=== PATIENT | female | born 1935 | race Caucasian/White ===

== ENCOUNTER 2016-04-29 17:43 | Inpatient (IN) | payer MEDICARE, OTHER ==
[~2016-04-29] VITALS: Ht 167.6 cm; Wt 61.2 kg
[2016-04-29 18:32] LABS: BASOPHILS % (AUTO) 0.4 % (0.0-2.0); DIFF TOTAL % 100 %; EOSINOPHILS # (AUTO) 0.1 /CMM (0.0-0.7); HEMATOCRIT 46 % (33-45); HEMOGLOBIN 14.9 g/dL (11.5-14.8); LYMPHOCYTES % (AUTO) 21.9 % (20.0-44.0); MEAN CORPUSCULAR HEMOGLOBIN 30 PG (26.0-33.0); MEAN CORPUSCULAR HGB CONC 33 g/dl (31.0-36.0); MEAN CORPUSCULAR VOLUME 91 fL (82-100); MONOCYTES # (AUTO) 0.5 /CMM (0.1-1.30); MONOCYTES % (AUTO) 5.2 % (2.0-12.0); NEUTROPHILS # (AUTO) 6.5 /CMM (1.8-8.9); NEUTROPHILS % (AUTO) 71.5 % (43.0-81.0); PLATELET COUNT (AUTO) 232 /CMM (150-450); RED BLOOD CELL COUNT(AUTO) 5.01 MIL/uL (4.0-5.2); WHITE BLOOD COUNT (AUTO) 9.1 K/uL (4.3-11.0)
[2016-04-29 18:43] LABS: KETONES,URINE Negative (NEGATIVE); LEUKOCYTE ESTERASE ,URINE Trace (NEGATIVE); PH,URINE 5.5 (5.0-8.0)
[2016-04-29 18:48] LABS: ADD UA MICROSCOPIC YES
[2016-04-29 18:52] LABS: ADD URINE CULTURE NO
[2016-04-29 18:58] LABS: CANNABINOID, URINE NEGATIVE (NEGATIVE); PHENCYCLIDINE SCREEN,URINE NEGATIVE (NEGATIVE)
[2016-04-29 18:59] LABS: ALANINE AMINOTRANSFERASE 20 U/L (12-78); ALBUMIN 4.1 g/dL (3.4-5.0); ANION GAP 14 (5-14); ASPARTATE AMINOTRANSFERASE 22 U/L (15-37); BILIRUBIN,DIRECT 0.2 mg/dL (0.0-0.2); BILIRUBIN,TOTAL 0.7 mg/dL (0.2-1.0); CALCIUM, SERUM 9.6 mg/dL (8.5-10.1); CARBON DIOXIDE 27 mmol/L (21-32); CHLORIDE 103 mmol/L (98-107); GLUCOSE 99 mg/dL (74-106); INDIRECT BILIRUBIN 0.5 mg/dL (0.0-1.1); POTASSIUM 4.5 mmol/L (3.5-5.1); SODIUM SERUM 139 mmol/L (136-145); TOTAL PROTEIN, SERUM 8.2 g/dL (6.4-8.2); UREA NITROGEN, BLOOD 22 mg/dL (7-18)
[2016-04-29 19:05] LABS: THYROID STIMULATING HORMONE 0.957 uIU/mL (0.358-3.74)
[2016-04-29] MEDS ORDERED: SOTA80TA PO (19:28)
[2016-04-29] MEDS ORDERED: MEMA10TA PO (19:28)
[2016-04-29] MEDS ORDERED: PANT20TA3 PO (19:28)
[2016-04-29] MEDS ORDERED: LEVO100T PO (19:28)
[2016-04-29 20:00] VITALS: BP 137/75
[2016-04-29] MEDS ORDERED: ACETAMINOPHEN 325 MG TABLET PO PRN ×2 (20:00→21:00)
[2016-04-29] MEDS ORDERED: MAGNESIUM HYDROXIDE 30 ML UDC PO PRN ×2 (20:00→21:00)
[2016-04-29] MEDS ORDERED: MAG HYDROX/AL HYDROX/SIMETH 30 ML UDC PO PRN ×2 (20:00→21:00)
[2016-04-29] MEDS ORDERED: ZOLPIDEM TARTRATE 5 MG TABLET PO PRN (20:00)
[2016-04-29] MEDS ORDERED: LORAZEPAM 0.5 MG TABLET PO PRN (21:00)
[2016-04-30] MEDS ORDERED: TEMAZEPAM 7.5 MG CAPSULE ONE (00:09)
[2016-04-30] MEDS: TEMAZEPAM 7.5 MG CAPSULE PO PRN ×2 (00:13→21:40)
[2016-04-30 01:36] VITALS: BP 137/75
[2016-04-30 07:26] LABS: BASOPHILS % (AUTO) 0.6 % (0.0-2.0); DIFF TOTAL % 100 %; EOSINOPHILS # (AUTO) 0.1 /CMM (0.0-0.7); EOSINOPHILS % (AUTO) 1.6 % (0.0-6.0); HEMATOCRIT 45 % (33-45); HEMOGLOBIN 14.6 g/dL (11.5-14.8); LYMPHOCYTES % (AUTO) 33.5 % (20.0-44.0); MEAN CORPUSCULAR HEMOGLOBIN 30 PG (26.0-33.0); MEAN CORPUSCULAR HGB CONC 33 g/dl (31.0-36.0); MEAN CORPUSCULAR VOLUME 92 fL (82-100); MONOCYTES # (AUTO) 0.6 /CMM (0.1-1.30); MONOCYTES % (AUTO) 6.9 % (2.0-12.0); NEUTROPHILS # (AUTO) 5.1 /CMM (1.8-8.9); NEUTROPHILS % (AUTO) 57.4 % (43.0-81.0); PLATELET COUNT (AUTO) 204 /CMM (150-450); RED BLOOD CELL COUNT(AUTO) 4.89 MIL/uL (4.0-5.2); WHITE BLOOD COUNT (AUTO) 8.8 K/uL (4.3-11.0)
[2016-04-30] MEDS ORDERED: PANTOPRAZOLE 40 MG TABLET.DR PO SCH (07:30)
[2016-04-30 07:50] LABS: BILIRUBIN,TOTAL 0.7 mg/dL (0.2-1.0); CALCIUM, SERUM 9.6 mg/dL (8.5-10.1); CREATININE 1.1 mg/dL (0.6-1.3); PHOSPHORUS 3.6 mg/dL (2.5-4.9); POTASSIUM 4.5 mmol/L (3.5-5.1); TOTAL PROTEIN, SERUM 8.2 g/dL (6.4-8.2)
[2016-04-30 08:00] VITALS: BP 123/72
[2016-04-30] MEDS: LEVOTHYROXINE SODIUM 100 MCG TABLET PO SCH (08:50)
[2016-04-30] MEDS: PANTOPRAZOLE 40 MG TABLET.DR PO SCH (08:50)
[2016-04-30] MEDS: MEMANTINE HCL 5 MG TABLET PO SCH ×2 (08:50→16:49)
[2016-04-30] MEDS: SOTALOL HCL 80 MG TABLET PO SCH ×2 (08:51→17:00)
[2016-04-30 16:02] VITALS: BP 96/57
[2016-04-30] MEDS: SERTRALINE HCL 25 MG TABLET PO SCH (16:50)
[2016-04-30 17:01] VITALS: BP 133/63
[2016-04-30 19:47] VITALS: BP 136/74
[2016-04-30] MEDS ORDERED: QUETIAPINE FUMARATE 25 MG TABLET PO SCH (22:00)
[2016-05-01 08:00] VITALS: BP 116/72
[2016-05-01] MEDS: PANTOPRAZOLE 40 MG TABLET.DR PO SCH (08:46)
[2016-05-01] MEDS: SERTRALINE HCL 25 MG TABLET PO SCH (08:47)
[2016-05-01] MEDS: MEMANTINE HCL 5 MG TABLET PO SCH ×2 (08:47→16:15)
[2016-05-01] MEDS: LEVOTHYROXINE SODIUM 100 MCG TABLET PO SCH (08:47)
[2016-05-01] MEDS: SOTALOL HCL 80 MG TABLET PO SCH ×2 (09:23→16:15)
[2016-05-01 15:55] VITALS: BP 100/55
[2016-05-01 15:56] VITALS: BP 147/59
[2016-05-01 19:48] VITALS: BP 119/60
[2016-05-01] MEDS: QUETIAPINE FUMARATE 25 MG TABLET PO SCH (21:13)
[2016-05-02 08:00] VITALS: BP 125/73
[2016-05-02] MEDS: SERTRALINE HCL 25 MG TABLET PO SCH (08:21)
[2016-05-02] MEDS: MEMANTINE HCL 5 MG TABLET PO SCH ×2 (08:21→16:43)
[2016-05-02] MEDS: PANTOPRAZOLE 40 MG TABLET.DR PO SCH (08:21)
[2016-05-02] MEDS: LEVOTHYROXINE SODIUM 100 MCG TABLET PO SCH (08:21)
[2016-05-02] MEDS: SOTALOL HCL 80 MG TABLET PO SCH ×2 (08:22→16:43)
[2016-05-02 16:18] VITALS: BP 125/70
[2016-05-02 20:08] VITALS: BP 131/74
[2016-05-02] MEDS: QUETIAPINE FUMARATE 25 MG TABLET PO SCH (21:28)
[2016-05-03 08:00] VITALS: BP 130/83
[2016-05-03] MEDS: SERTRALINE HCL 25 MG TABLET PO SCH (08:38)
[2016-05-03] MEDS: PANTOPRAZOLE 40 MG TABLET.DR PO SCH (08:38)
[2016-05-03] MEDS: MEMANTINE HCL 5 MG TABLET PO SCH ×2 (08:38→16:10)
[2016-05-03] MEDS: SOTALOL HCL 80 MG TABLET PO SCH ×2 (08:39→17:06)
[2016-05-03] MEDS: LEVOTHYROXINE SODIUM 100 MCG TABLET PO SCH (08:39)
[2016-05-03 16:00] VITALS: BP 127/79
[2016-05-03 19:54] VITALS: BP 102/54
[2016-05-03] MEDS: QUETIAPINE FUMARATE 25 MG TABLET PO SCH (21:00)
[2016-05-04] MEDS: PANTOPRAZOLE 40 MG TABLET.DR PO SCH (07:30)
[2016-05-04] MEDS: LEVOTHYROXINE SODIUM 100 MCG TABLET PO SCH (07:30)
[2016-05-04 07:31] LABS: BASOPHILS % (AUTO) 0.5 % (0.0-2.0); DIFF TOTAL % 100 %; EOSINOPHILS # (AUTO) 0.1 /CMM (0.0-0.7); EOSINOPHILS % (AUTO) 1.5 % (0.0-6.0); HEMATOCRIT 44 % (33-45); HEMOGLOBIN 14.6 g/dL (11.5-14.8); LYMPHOCYTES # (AUTO) 1.9 /CMM (0.8-4.8); LYMPHOCYTES % (AUTO) 27.1 % (20.0-44.0); MEAN CORPUSCULAR HEMOGLOBIN 30 PG (26.0-33.0); MEAN CORPUSCULAR HGB CONC 33 g/dl (31.0-36.0); MEAN CORPUSCULAR VOLUME 91 fL (82-100); MONOCYTES # (AUTO) 0.6 /CMM (0.1-1.30); MONOCYTES % (AUTO) 8.1 % (2.0-12.0); NEUTROPHILS # (AUTO) 4.5 /CMM (1.8-8.9); NEUTROPHILS % (AUTO) 62.8 % (43.0-81.0); PLATELET COUNT (AUTO) 225 /CMM (150-450); RED BLOOD CELL COUNT(AUTO) 4.86 MIL/uL (4.0-5.2); WHITE BLOOD COUNT (AUTO) 7.1 K/uL (4.3-11.0)
[2016-05-04 07:55] LABS: CALCIUM, SERUM 10.1 mg/dL (8.5-10.1); CREATININE 1.1 mg/dL (0.6-1.3); PHOSPHORUS 3.8 mg/dL (2.5-4.9); POTASSIUM 4.1 mmol/L (3.5-5.1)
[2016-05-04 08:00] VITALS: BP 147/72
[2016-05-04] MEDS: MEMANTINE HCL 5 MG TABLET PO SCH ×2 (08:29→17:00)
[2016-05-04] MEDS: SOTALOL HCL 80 MG TABLET PO SCH ×2 (08:31→17:00)
[2016-05-04] MEDS: SERTRALINE HCL 25 MG TABLET PO SCH (08:32)
[2016-05-04 12:16] LABS: INR 0.97 (0.87-1.13); PROTHROMBIN TIME 10.5 SECS (9.5-12.7)
[2016-05-04 16:00] VITALS: BP 111/57
[2016-05-04 20:06] VITALS: BP 122/72
[2016-05-04] MEDS: QUETIAPINE FUMARATE 25 MG TABLET PO SCH (21:23)
[2016-05-05 08:08] VITALS: BP 101/58
[2016-05-05] MEDS: SOTALOL HCL 80 MG TABLET PO SCH ×2 (09:00→17:00)
[2016-05-05] MEDS: SERTRALINE HCL 25 MG TABLET PO SCH (09:53)
[2016-05-05] MEDS: LEVOTHYROXINE SODIUM 100 MCG TABLET PO SCH (10:50)
[2016-05-05] MEDS: PANTOPRAZOLE 40 MG TABLET.DR PO SCH (10:50)
[2016-05-05 16:31] VITALS: BP 104/56
[2016-05-05 20:02] VITALS: BP 109/65
[2016-05-05] MEDS: QUETIAPINE FUMARATE 25 MG TABLET PO SCH (21:10)
[2016-05-05] MEDS: TEMAZEPAM 7.5 MG CAPSULE PO PRN (22:37)
[2016-05-06] MEDS: PANTOPRAZOLE 40 MG TABLET.DR PO SCH (07:30)
[2016-05-06 08:00] VITALS: BP 170/79
[2016-05-06] MEDS: SERTRALINE HCL 25 MG TABLET PO SCH (10:29)
[2016-05-06] MEDS: LEVOTHYROXINE SODIUM 100 MCG TABLET PO SCH (10:30)
[2016-05-06] MEDS: SOTALOL HCL 80 MG TABLET PO SCH ×2 (10:30→17:31)
[2016-05-06 16:00] VITALS: BP 154/59
[2016-05-06 20:00] VITALS: BP 119/61
[2016-05-06] MEDS: QUETIAPINE FUMARATE 25 MG TABLET PO SCH (21:30)
[2016-05-06] MEDS: TEMAZEPAM 7.5 MG CAPSULE PO PRN (21:31)
[2016-05-07 08:16] VITALS: BP 145/73
[2016-05-07] MEDS: LEVOTHYROXINE SODIUM 100 MCG TABLET PO SCH (09:53)
[2016-05-07] MEDS: SOTALOL HCL 80 MG TABLET PO SCH ×2 (09:54→16:14)
[2016-05-07] MEDS: PANTOPRAZOLE 40 MG TABLET.DR PO SCH (09:55)
[2016-05-07] MEDS: SERTRALINE HCL 25 MG TABLET PO SCH (09:55)
[2016-05-07 16:00] VITALS: BP 101/56
[2016-05-07 20:00] VITALS: BP 109/65
[2016-05-07] MEDS: QUETIAPINE FUMARATE 25 MG TABLET PO SCH (21:06)
[2016-05-08] MEDS: LEVOTHYROXINE SODIUM 100 MCG TABLET PO SCH (07:30)
[2016-05-08] MEDS: PANTOPRAZOLE 40 MG TABLET.DR PO SCH (07:30)
[2016-05-08 08:11] VITALS: BP 116/82
[2016-05-08] MEDS: SOTALOL HCL 80 MG TABLET PO SCH ×2 (09:07→16:18)
[2016-05-08] MEDS: SERTRALINE HCL 25 MG TABLET PO SCH (09:07)
[2016-05-08 16:20] VITALS: BP 114/70
[2016-05-08 19:54] VITALS: BP 91/46
[2016-05-08] MEDS: QUETIAPINE FUMARATE 25 MG TABLET PO SCH (20:03)
[2016-05-09] MEDS: PANTOPRAZOLE 40 MG TABLET.DR PO SCH (07:30)
[2016-05-09 08:00] VITALS: BP 118/69
[2016-05-09] MEDS: SERTRALINE HCL 25 MG TABLET PO SCH (09:10)
[2016-05-09] MEDS: SOTALOL HCL 80 MG TABLET PO SCH (09:10)
[2016-05-09] MEDS: LEVOTHYROXINE SODIUM 100 MCG TABLET PO SCH ×3 (09:10→09:13)
[2016-05-09 10:00] VITALS: BP 118/69
[2016-05-09 16:00] VITALS: BP 127/74
== END 2016-05-09 16:00 | DRG 885 ==
LOC: ER 17:47 → GPS 19:30
PROVIDERS: ADMIT Psychiatry & Neurology Psychosomatic Medicine; ATTEND Nurse Practitioner Acute Care
DX: F29 Unspecified psychosis not due to a substance or known physiological condition (principal); F01.50 Vascular dementia, unspecified severity, without behavioral disturbance, psychotic disturbance, mood disturbance, and anxiety; F32.9 Major depressive disorder, single episode, unspecified; I48.91 Unspecified atrial fibrillation; E03.9 Hypothyroidism, unspecified; F43.10 Post-traumatic stress disorder, unspecified; I10 Essential (primary) hypertension; K21.9 Gastro-esophageal reflux disease without esophagitis; Z86.73 Personal history of transient ischemic attack (TIA), and cerebral infarction without residual deficits; Z87.440 Personal history of urinary (tract) infections
CPT/HCPCS: 36415; 70450-TC; 71010-TC; 80048-TC; 80053-TC; 80061-TC; 80076-TC; 80305; 81000-TC; 83735-TC; 84100-TC; 84439-TC; 84443-TC; 85025-TC; 85610-TC; 85730-TC; 87081-TC; A4606; G6040-TC; Z7610